=== PATIENT | female | born 1990 | race Caucasian/White ===

== ENCOUNTER 2021-11-30 23:20 | Observation (INO) | payer OTHER | END 2021-11-30 23:45 | disposition home or self-care (01) | LOC: SPU 23:20 | PROVIDERS: ADMIT Specialist; ATTEND Specialist | DX: O62.9 Abnormality of forces of labor, unspecified (principal); Z3A.30 30 weeks gestation of pregnancy | CPT/HCPCS: 81002; G0378 ==

== ENCOUNTER 2022-01-21 15:46 | Inpatient (IN) | payer OTHER ==
[~2022-01-21] VITALS: Ht 162.6 cm; Wt 68.9 kg
[2022-01-21] MEDS ORDERED: LR 1,000 ML IV ONE (16:45)
[2022-01-21] MEDS ORDERED: CEFAZOLIN 2 GM IVPB PREMIX 50 ML IV ONE (16:45)
[2022-01-21 16:55] LABS: BILIRUBIN,URINE NEGATIVE (NEGATIVE); CLARITY/URINE CLEAR (CLEAR); COLOR,URINE YELLOW (YELLOW); GLUCOSE,URINE NEGATIVE (NEGATIVE); KETONES,URINE NEGATIVE (NEGATIVE); NITRITE, URINE NEGATIVE (NEGATIVE); PH,URINE 6.5 (5.0-8.0); PROTEIN URINE NEGATIVE (NEGATIVE); UROBILINOGEN,URINE 0.2 (0.2-1.0)
[2022-01-21 16:57] LABS: BASOPHILS # (AUTO) 0.1 K/uL (0.0-0.2); BASOPHILS % (AUTO) 0.9 % (0.0-2.0); EOSINOPHILS % (AUTO) 0.4 % (0.0-4.0); HEMATOCRIT 38.3 % (36-48); HEMOGLOBIN 12.6 g/dL (12.0-16.0); LYMPHOCYTES # (AUTO) 2.6 K/uL (1.0-5.5); MEAN CORPUSCULAR HEMOGLOBIN 27 pg (27-31); MEAN CORPUSCULAR HGB CONC 33 % (32-36); MEAN CORPUSCULAR VOLUME 81 fL (79.0-98.0); MONOCYTES # (AUTO) 0.7 K/uL (0.0-1.0); MONOCYTES % (AUTO) 7.8 % (1.7-9.3); NEUTROPHILS # (AUTO) 5.8 K/uL (1.8-7.7); NEUTROPHILS % (AUTO) 62.9 % (40.0-70.0); PLATELET COUNT (AUTO) 233 K/uL (130-430); RED BLOOD CELL COUNT(AUTO) 4.72 MIL/uL (4.2-6.2); RED CELL DISTRIBUTION WIDTH 13.5 % (9.0-15.0); WHITE BLOOD COUNT (AUTO) 9.3 K/uL (4.8-10.8)
[2022-01-21 17:03] LABS: BLOOD, URINE TRACE (NEGATIVE); LEUKOCYTE ESTERASE ,URINE TRACE (NEGATIVE)
[2022-01-21 17:04] LABS: BACTERIA,URINE FEW /HPF (None Seen); MUCUS,URINE None Seen /LPF (None Seen); RBC,URINE NONE SEEN /HPF (0-3)
[2022-01-21] MEDS ORDERED: BUPIVACAINE /PF 0.75% 10 ML VIAL INJ ONE (17:35)
[2022-01-21] MEDS ORDERED: NS IRRIG SOLN 1000 ML IR ONE (17:35)
[2022-01-21] MEDS ORDERED: LR 1,000 ML IV.SOLN IV ONE (17:35)
[2022-01-21] MEDS ORDERED: MORPHINE SULFATE 10MG/10ML PF AMP ONE (17:35)
[2022-01-21] MEDS ORDERED: NALBUPHINE HCL 10 MG/ML AMP IVP PRN (18:00)
[2022-01-21] MEDS ORDERED: ONDANSETRON HCL 4 MG/2 ML VIAL IVP PRN (18:00)
[2022-01-21] MEDS ORDERED: fentaNYL CITRATE/PF 100 MCG/2 ML AMP IVP PRN ×2 (18:00)
[2022-01-21] MEDS ORDERED: MORPHINE SULFATE 10MG/10ML PF AMP SP SCH (18:00)
[2022-01-21] MEDS ORDERED: KETOROLAC TROMETHAMINE 60 MG/2 ML VIAL IM PRN (18:00)
[2022-01-21] MEDS ORDERED: NALOXONE HCL 0.4 MG/ML AMP (NARCAN) IVP PRN ×3 (18:00→18:45)
[2022-01-21] MEDS ORDERED: DIPHENHYDRAMINE INJ 50 MG/ML VIAL IVP PRN (18:00)
[2022-01-21 18:37] VITALS: BP_SYST 129
[2022-01-21] MEDS ORDERED: TEMAZEPAM 15 MG CAPSULE PO PRN (18:45)
[2022-01-21] MEDS ORDERED: RHO(D) IMMUNE GLOBULIN/MALTOSE 1500 UNITS/1.3 ML (WINHRO) IM PRN (18:45)
[2022-01-21] MEDS ORDERED: DIPHTH,PERTUSS(ACELL),TET VAC 0.5 ML VIAL (Tdap) I.M. PRN (18:45)
[2022-01-21] MEDS ORDERED: ANUSOL 1 EA SUPP.RECT (PREPARATION H) RC PRN (18:45)
[2022-01-21] MEDS ORDERED: LR 1,000 ML IV SCH (18:45)
[2022-01-21] MEDS ORDERED: BISACODYL 10 MG/SUPPOSITORY RC PRN (18:45)
[2022-01-21] MEDS ORDERED: LANOLIN 7 GM OINT. TP PRN (18:45)
[2022-01-21] MEDS ORDERED: MEASLES,MUMPS&RUBELLA VACC/PF 12500 UNIT/0.5 ML VIAL SUBQ PRN (18:45)
[2022-01-21] MEDS ORDERED: HYDROcodone/ACETAMIN 5-325 MG TAB (NORCO/ VICODIN) PO PRN (18:45)
[2022-01-21] MEDS: OXYTOCIN/0.9 % SODIUM CHLORIDE 1,000 ML IV SCH (20:48)
[2022-01-22] MEDS: CEFAZOLIN 1 GM IVPB PREMIX 50 ML IV SCH ×3 (00:10→11:54)
[2022-01-22] MEDS: ACETAMINOPHEN I.V. 1000 MG 100 ML IV SCH ×4 (03:05→20:45)
[2022-01-22] MEDS: OXYTOCIN/0.9 % SODIUM CHLORIDE 1,000 ML IV SCH ×2 (03:05→15:05)
[2022-01-22] MEDS: KETOROLAC TROMETHAMINE 30 MG VIAL IVP SCH ×4 (06:03→23:26)
[2022-01-22 07:54] LABS: BASOPHILS # (AUTO) 0.1 K/uL (0.0-0.2); BASOPHILS % (AUTO) 0.5 % (0.0-2.0); EOSINOPHILS # (AUTO) 0.1 K/uL (0.0-0.4); EOSINOPHILS % (AUTO) 0.6 % (0.0-4.0); HEMATOCRIT 32.4 % (36-48); HEMOGLOBIN 11.1 g/dL (12.0-16.0); LYMPHOCYTES # (AUTO) 1.3 K/uL (1.0-5.5); LYMPHOCYTES % (AUTO) 11.2 % (20.5-51.5); MEAN CORPUSCULAR HEMOGLOBIN 28 pg (27-31); MEAN CORPUSCULAR HGB CONC 34 % (32-36); MEAN CORPUSCULAR VOLUME 80 fL (79.0-98.0); MONOCYTES # (AUTO) 0.9 K/uL (0.0-1.0); MONOCYTES % (AUTO) 7.8 % (1.7-9.3); NEUTROPHILS # (AUTO) 9.6 K/uL (1.8-7.7); NEUTROPHILS % (AUTO) 79.9 % (40.0-70.0); PLATELET COUNT (AUTO) 178 K/uL (130-430); RED BLOOD CELL COUNT(AUTO) 4.03 MIL/uL (4.2-6.2); RED CELL DISTRIBUTION WIDTH 13.7 % (9.0-15.0)
[2022-01-22] MEDS: DOCUSATE SODIUM 100 MG CAPSULE PO SCH ×2 (09:01→20:42)
[2022-01-22] MEDS: SENNOSIDES/DOCUSATE SODIUM 1 TAB TABLET(SENOKOT-S) PO SCH (20:42)
[2022-01-23] MEDS: IBUPROFEN 600 MG TABLET PO SCH ×3 (06:20→17:46)
[2022-01-23] MEDS: DOCUSATE SODIUM 100 MG CAPSULE PO SCH ×3 (08:57→20:41)
[2022-01-23] MEDS: OXYCODONE/ACETAMINOPHEN *10*mg/325 mg TABLET PO PRN (11:04)
[2022-01-23] MEDS: SIMETHICONE 80 MG TAB.CHEW PO PRN (11:51)
[2022-01-23] MEDS: OXYCODONE/ACETAMINOPHEN 5-325 TABLET PO PRN (18:30)
[2022-01-23] MEDS: SENNOSIDES/DOCUSATE SODIUM 1 TAB TABLET(SENOKOT-S) PO SCH (20:40)
[2022-01-24] MEDS: IBUPROFEN 600 MG TABLET PO SCH ×5 (00:18→23:47)
[2022-01-24] MEDS: OXYCODONE/ACETAMINOPHEN *10*mg/325 mg TABLET PO PRN ×3 (00:59→12:11)
[2022-01-24] MEDS: SIMETHICONE 80 MG TAB.CHEW PO PRN ×2 (10:28→19:09)
[2022-01-24] MEDS ORDERED: HYDROCORTISONE 0.5% CREAM 28.4 GM CREAM.GM. TP PRN (11:00)
[2022-01-24] MEDS: OXYCODONE/ACETAMINOPHEN 5-325 TABLET PO PRN (19:09)
[2022-01-24] MEDS: DOCUSATE SODIUM 100 MG CAPSULE PO SCH (21:00)
[2022-01-24] MEDS: SENNOSIDES/DOCUSATE SODIUM 1 TAB TABLET(SENOKOT-S) PO SCH (21:00)
[2022-01-25] MEDS: IBUPROFEN 600 MG TABLET PO SCH (05:30)
[2022-01-25] MEDS: SIMETHICONE 80 MG TAB.CHEW PO PRN (05:31)
[2022-01-25] MEDS: DOCUSATE SODIUM 100 MG CAPSULE PO SCH (08:59)
[2022-01-25] MEDS ORDERED: PERC10 PO (17:38)
== END 2022-01-25 09:40 | disposition home or self-care (01) | DRG 787 ==
LOC: OBSVTOIN 15:46 → SPU 15:46
PROVIDERS: ADMIT Specialist; ATTEND Specialist
PROC: 10D00Z1 Extraction of Products of Conception, Low, Open Approach (ICD-10-PCS; principal; 2022-01-21 17:30)
DX: O32.1XX0 Maternal care for breech presentation, not applicable or unspecified (principal); D62 Acute posthemorrhagic anemia; O36.5930 Maternal care for other known or suspected poor fetal growth, third trimester, not applicable or unspecified; O69.81X0 Labor and delivery complicated by cord around neck, without compression, not applicable or unspecified; Z37.0 Single live birth; Z3A.37 37 weeks gestation of pregnancy; Z20.822 Contact with and (suspected) exposure to COVID-19
CPT/HCPCS: 36415; 76815; 81000; 85025; 86592; 86886; 86900; 86901; 94760; J0131; J0690; J1200; J1885; J2274; J2590; J3490; J7120